=== PATIENT | female | born 1985 | race African-American/Black ===

== ENCOUNTER 2017-04-04 20:53 | Emergency (ER) | payer MEDICAID ==
[~2017-04-04] VITALS: Ht 165.1 cm; Wt 90.7 kg
--- NOTE | 2017-04-04 20:57 | NUR ---
CALLED PT. AT THE ER LOBBY, PT. NOT PRESENT.
[2017-04-04 21:07] VITALS: BP 133/79
--- NOTE | 2017-04-04 21:12 | NUR ---
PT. AMBULATED TO LOBBY, NO S/SX OF DISTRESS AT THIS TIME.
--- NOTE | 2017-04-04 21:17 | NUR ---
AMBULATED TO ER OF1
--- NOTE | 2017-04-04 21:54 | NUR ---
PT C/O URINARY BURNING, FREQUENCY, HEMATURIA, LOWER ABD TENDERNESS. PT STATES SYMPTOMS STARTED SUNDAY, PT HAS BEEN TAKING OTC MEDS W/ NO RELIEF. PAINN / TO LOWER ABD AND ON URINATION. NO PMH, NKA
[2017-04-04] MEDS ORDERED: CIPROFLOXACIN 250 MG TAB PO ONE (22:15)
[2017-04-04] MEDS ORDERED: PHENAZOPYRIDINE 100 MG TAB PO ONE (22:15)
[2017-04-04] MEDS ORDERED: PHENAZOPYRIDINE 100 MG TAB ONE (22:24)
[2017-04-04] MEDS ORDERED: CIPROFLOXACIN 250 MG TAB ONE (22:24)
[2017-04-04 22:35] VITALS: BP 127/74
--- NOTE | 2017-04-04 22:35 | NUR ---
Patient discharged with v/s stable. Written and verbal after care instructions given and explained. Patient alert, oriented and verbalized understanding of instructions. Ambulatory with steady gait. All questions addressed prior to discharge. ID band removed. Patient advised to follow up with PMD. Rx of Pyridium and Macrobid given. Patient educated on indication of medication including possible reaction and side effects. Opportunity to ask questions provided and answered.
== END 2017-04-04 22:35 | disposition home or self-care (01) ==
LOC: MED 20:53
DX: N39.0 Urinary tract infection, site not specified (principal); R03.0 Elevated blood-pressure reading, without diagnosis of hypertension
CPT/HCPCS: 81002; 81025; 99283